=== PATIENT | male | born 1945 | race Caucasian/White ===

== ENCOUNTER → 2021-01-12 | Outpatient (CLI) | payer MEDICARE ==
[~2021-01-12] MED LIST: CEPH500 PO; CYCL10 PO; OXYACE5T PO; Percocet 5-3251 EACH PO; Zofran Odt4 MG SL
== END | disposition home or self-care (01) ==
LOC: LAB SHORT 12:47 → LAB 12:47
DX: J02.9 Acute pharyngitis, unspecified (principal)
CPT/HCPCS: 87081

== ENCOUNTER 2025-01-07 06:38 | Emergency (ER) | payer MEDICARE ==
[~2025-01-07] VITALS: Ht 172.7 cm; Wt 80.7 kg
[2025-01-07 08:03] LABS: Source, Urine Foley catheter
[2025-01-07 08:22] LABS: Bilirubin, Urine Neg (Neg); Color, Urine Yellow (P-Yellow); Glucose Qualitative, Urine Neg (Neg); Ketones, Urine Neg (Neg); Leukocyte Esterase, Urine Neg (Neg); Protein, Urine Neg (Neg); Specific Gravity, Urine 1.010 (1.003-1.022); Urobilinogen, Urine NORM (Normal)
[2025-01-07 08:33] LABS: Red Blood Cells, Urine 0-2 /hpf (0-2); White Blood Cells, Urine 0-2 /hpf (0-5)
[2025-01-07 09:30] VITALS: BP 152/76
[2025-01-07] MEDS ORDERED: TAMS.4ER PO (10:40)
== END 2025-01-07 10:56 | disposition home or self-care (01) ==
LOC: ER 06:38
PROVIDERS: Student in an Organized Health Care Education/Training Program
DX: R33.9 Retention of urine, unspecified (principal)
CPT/HCPCS: 51702; 51798; 81001; 99283-25; A9270